=== PATIENT | male | born 1935 | race Caucasian/White ===

== ENCOUNTER 2021-10-04 21:41 | Inpatient (IN) | payer OTHER ==
--- OUTSIDE RECORDS SUMMARY | 2021-10-04 21:44 | XMS REPORT | Continuity of Care Document ---
:1935 Author Organization [facility] t Address [address] [place] [address] Care Team Providers Name Role Phone DR RADHA GRANADO I Attending Clinician Unavailable DR Beatris GRANADO Admitting Clinician Unavailable Payers Payer Name Policy Type Policy Number Effective Date Expiration Date S ource Problems This patient has no known problems. Allergies, Adverse Reactions, Alerts Allergy Allergy Status Severity Reaction(s) Onset Inactive Treating Comm ents Source Name Type Date Date Clinician No Known DA Active Unknown Mickie Allergie 06-21 Medical s 00:00: Center 00 Medications This patient has no known medications. Vital Signs Vital Name Observation Time Observation Value Comments Source Height 2020-06-10 10:35:00 167.64 CM Weight 2020-06-10 10:35:00 61.23 KG Procedures Procedure Date / Time Performed Performing Clinician [facility] e OFFICE O/P EST LOW 2021-07-28 00:00:00 John [facility] cha Center 20-29 MIN SYST BP >= 140 MM HG 2021-07-28 00:00:00 [facility] dical Center DIAST BP >= 90 MM HG 2021-07-28 00:00:00 [facility] [place] EXCISION OF NAIL FOLD 2021-07-28 00:00:00 John [facility] [place] TOE SUPPLEMENT LT INGUINAL 2020-06-09 00:00:00 [facility] SYN OPEN Center REPAIR SMALL INTESTINE 2020-06-09 00:00:00 Ivy [facility] OPEN APPR Center Encounters Start End Encounter Admission Attending Care Care Encounter Source Date/Time Date/Time Type Type Clinicians Facility Department ID 2021-08-03 2021-08-03 Outpatient JESE Mcknight [facility] [place] [id number] [place] 10:37:00 10:37:00 Les [id number] Med ical 1 Center 2021-07-28 2021-07-28 Outpatient JESE Mcknight [facility] [place] [id number] [place] 15:15:00 15:15:00 Les [id number] Med ical 5 [place] 2021-07-27 2021-07-27 Outpatient Juan Luis, [facility] [id number] [place] 15:59:00 15:59:00 Les [id number] Med ical 4 [place] 2021-07-19 2021-07-19 Outpatient Juan Luis, [facility] [id number] [place] 16:00:00 16:00:00 Les 56- Med ical 6 [place] 2020-06-09 2020-06-11 Inpatient E VANNESA, [facility] [place] [id number] [address] [place] 11:02:00 14:21:00 [facility] Medic al Center Results Test Description Test Time Test Comments Results Result Comments Source COMPREHENSIVE METABOLIC CRUZ 2020-06-11 09:47:00 Test Item Value Reference Range Interpretation Comme nts GLUCOSE (test code = 126 mg/dL 75-100 H 06D) SODIUM (test code = 137 mmol/L 136-145 01A) POTASSIUM (test code = 3.1 mmol/L 3.6-5.1 L 01B) CHLORIDE (test code = 100 mmol/L 98-107 04A) CO2 (test code = 02A) 31 mmol/L 22-32 ANION GAP (test code = 9.1 mmol/L ANG) BUN (test code = 05D) 11 mg/dL 7-18 CREATININE (test code = 0.6 mg/dL 0.7-1.3 L 03E) GFR (test code = GFR) 93 mL/min/1.73m\S\2 See_Comment [Automated message] The system which ge nerated this result tra nsmitted reference range : >=90. The reference r uli was not used to int erpret this result as normal/abnormal . GFR 108 mL/min/1.73m\S\2 See_Comment [Automated message] The (test code = GFRAA) system w [facility] generated this result tra nsmitted reference range : >=90. The reference r uli was not used to int erpret this result as normal/abnormal . EGFR (test code = EGFR) eGFR BY CKD-EPI CALCULATION IS NOT RECOMMENDED FOR PATIENTS UNDER 18 YEARS OF AGE. BUN/CREA (test code = 20 12-20 BCR) CALCIUM (test code = 8.5 mg/dL 8.3-9.5 09D) BILI TOTAL (test code = 0.9 mg/dL 0.2-1.0 11A) PROTEIN (test code = 6.0 g/dL 6.4-8.2 L 07D) ALBUMIN (test code = 2.7 g/dL 3.5-4.8 L 08D) GLOBULIN (test code = 3.3 g/dL 1.5-3.8 GLB) ALB/GLOB (test code = 0.8 1.0-2.6 L AGRR) ALK PHOS (test code = 32 IU/L 42-121 L 35A) AST (test code = 30A) 14 IU/L See_Comment [Auto mated message] The system which [place] nerated this result tra nsmitted reference range : <=42. The reference r uli was not used to int erpret this result as normal/abnormal . ALT (test code = 31A) 13 IU/L See_Comment [Auto mated message] The system which [place] nerated this result tra nsmitted reference range : <=78. The reference r uli was not used to int erpret this result as normal/abnormal . CBC (INCLUDES AUTOMATED DIFFERENTIAL)2020-06-11 09:30:00 Test Item Value Reference Range Interpretation Comments WBC (test code = WBC) 7.1 10\S\3/uL 4.5-11.0 RBC (test code = RBC) 3.34 10\S\6/uL 3.80-5.80 L HGB (test code = HBG) 11.8 g/dL 14.0-18.0 L HCT (test code = HCT) 34.2 % 35.0-46.0 L MCV (test code = MCV) 102.4 fL 80.0-94.0 H MCH (test code = MCH) 35.3 pg 27.0-31.0 H MCHC (test code = MCHC) 34.5 g/dL 32.0-36.0 RDW (test code = RDW) 12.9 % 11.5-14.5 PLT (test code = PLT) 211 10\S\3/uL 130-400 MPV (test code = MPV) 8.6 fL 9.4-12.4 L NEUTROP # (test code = NE#) 5.5 10\S\3/uL 2.0-8.0 LYMPH # (test code = LY#) 1.0 10\S\3/uL 1.2-4.0 L MONOCYTE # (test code = MO#) 0.6 10\S\3/uL 0.0-1.1 EOSINOPH # (test code = EO#) 0.0 10\S\3/uL 0.0-0.7 BASOPHIL # (test code = BA#) 0.0 10\S\3/uL 0.0-0.3 IG # (test code = IG#) 0.01 10\S\3/uL 0.00-0.06 NRBC # (test code = NRBC#) 0.00 10\S\3/uL 0.00-0.01 NEUTROPH % (test code = NE%) 77.0 % 35.0-73.0 H LYMPH % (test code = LY%) 13.6 % 20.0-55.0 L MONO % (test code = MO%) 8.9 % 2.5-10.0 EOSINOPH % (test code = EO%) 0.3 % 0.0-5.0 BASOPHIL % (test code = BA%) 0.1 % 0.0-2.0 IG % (test code = IG%) 0.1 % 0.0-0.8 NRBC% (test code = NRBC%) 0.0 % 0.0-0.2 MANDIFF (test code = MDIFF) NO NO RBC MORPH (test code = RBCMOR) NORMAL CBC WITH [id number] 10:12:00 Test Item Value Reference Range Interpretation Comments WBC (test code = WBC) 6.4 10\S\3/uL 4.5-11.0 RBC (test code = RBC) 3.40 10\S\6/uL 3.80-5.80 L HGB (test code = HBG) 12.0 g/dL 14.0-18.0 L HCT (test code = HCT) 34.9 % 35.0-46.0 L MCV (test code = MCV) 97.0 fL 80.0-94.0 H MCH (test code = MCH) 35.3 pg 27.0-31.0 H MCHC (test code = MCHC) 34.4 g/dL 32.0-36.0 RDW (test code = RDW) 13.2 % 11.5-14.5 PLT (test code = PLT) 182 10\S\3/uL 130-400 MPV (test code = MPV) 9.6 fL 9.4-12.4 NEUTROP # (test code = NE#) 5.1 10\S\3/uL 2.0-8.0 LYMPH # (test code = LY#) 0.8 10\S\3/uL 1.2-4.0 L MONOCYTE # (test code = 0.5 10\S\3/uL 0.0-1.1 MO#) EOSINOPH # (test code = 0.0 10\S\3/uL 0.0-0.7 EO#) BASOPHIL # (test code = 0.0 10\S\3/uL 0.0-0.3 BA#) IG # (test code = IG#) 0.01 10\S\3/uL 0.00-0.06 NRBC # (test code = NRBC#) 0.00 10\S\3/uL 0.00-0.01 NEUTROPH % (test code = 79.5 % 35.0-73.0 H NE%) LYMPH % (test code = LY%) 12.4 % 20.0-55.0 L MONO % (test code = MO%) 7.7 % 2.5-10.0 EOSINOPH % (test code = 0.0 % 0.0-5.0 EO%) BASOPHIL % (test code = 0.2 % 0.0-2.0 BA%) IG % (test code = IG%) 0.2 % 0.0-0.8 NRBC% (test code = NRBC%) 0.0 % 0.0-0.2 PLT EST (test code = ADEQUATE ADEQUATE PLTEST) PLT MORPH (test code = NORMAL (1.5-3 um) NORMAL PLTMOR) ANISO (test code = ANISO) 1+ NONE A HYPOCHROM (test code = 1+ NONE A HYPOC) MACRO (test code = MACRO) 1+ NONE A BASIC METABOLIC [id number] 09:41:00 Test Item Value Reference Range Interpretation Comments GLUCOSE (test code 173 mg/dL 75-100 H = 06D) SODIUM (test code 134 mmol/L 136-145 L = 01A) POTASSIUM (test 3.6 mmol/L 3.6-5.1 code = 01B) CHLORIDE (test 95 mmol/L 98-107 L code = 04A) CO2 (test code = 35 mmol/L 22-32 H 02A) ANION GAP (test 7.6 mmol/L code = ANG) BUN (test code = 20 mg/dL 7-18 H 05D) CREATININE (test 0.8 mg/dL 0.7-1.3 code = 03E) GFR (test code = 82 See_Comment L [Automated GFR) mL/min/1.73m\S\2 message] Th e system which generated this result transmit vasyl reference range : >=90. The reference range was not used to interpret this result as normal/abnormal . GFR 95 See_Comment [Automated MACANESE (test mL/min/1.73m\S\2 message] The code = GFRAA) system which generated this result transmit vasyl reference range : >=90. The reference range was not used to interpret this result as normal/abnormal . EGFR (test code = eGFR BY EGFR) CKD-EPI CALCULATION IS NOT RECOMMENDED FOR PATIENTS UNDER 18 YEARS OF AGE. BUN/CREA (test 26 12-20 H code = BCR) CALCIUM (test code 8.7 mg/dL 8.3-9.5 = 09D) SARS-CoV (RAPID ANTIGEN)2020-06-09 14:36:00 Test Item Value Reference Range Interpretation Comments SARS-CoV (ANTIGEN) NEGATIVE NEGATIVE (test code = COVAG) COVID AG (test This test has been code = COVAGC) marketed under the FDA Emergency Use Authorization (EUA) to meet challenges of the COVID-19 pandemic. The validation standards normally enforced by the FDA and the [employer] (CAP) are more stringent than those required for this test. Therefore, the result should be interpreted with caution and close attention to other clinical and epidemiological data PRO TIME AND [id number] 11:38:00 Test Item Value Reference Range Interpretation Comments PT (test code = 11.1 s 9.8-13.6 TT) INR (test code = 1.0 INR) INRH (test code = SUGGESTED INRH) THERAPEUTIC RANGE FOR INR: 2.5 - 3.5 For Patients with Prosthetic Valves or Patients with recurrent Thromboembolic Events 2.0 - 3.0 For Most Other Applications PTT (test code = 27.7 s 20.2-38.0 PTT) PTTH (test code = To monitor the PTTH) effectiveness of heparin, we offer the Anti-Xa (Heparin Assay). It can be used for either unfractionated or LMW Heparin. Order Code is ANTI-XA CBC (INCLUDES AUTOMATED DIFFERENTIAL)2020-06-09 11:31:00 Test Item Value Reference Range Interpretation Comments WBC (test code = WBC) 10.6 10\S\3/uL 4.5-11.0 RBC (test code = RBC) 4.31 10\S\6/uL 3.80-5.80 HGB (test code = HBG) 15.0 g/dL 14.0-18.0 HCT (test code = HCT) 41.8 % 35.0-46.0 MCV (test code = MCV) 97.0 fL 80.0-94.0 H MCH (test code = MCH) 34.8 pg 27.0-31.0 H MCHC (test code = MCHC) 35.9 g/dL 32.0-36.0 RDW (test code = RDW) 12.9 % 11.5-14.5 PLT (test code = PLT) 291 10\S\3/uL 130-400 MPV (test code = MPV) 8.6 fL 9.4-12.4 L NEUTROP # (test code = NE#) 8.8 10\S\3/uL 2.0-8.0 H LYMPH # (test code = LY#) 0.8 10\S\3/uL 1.2-4.0 L MONOCYTE # (test code = MO#) 1.0 10\S\3/uL 0.0-1.1 EOSINOPH # (test code = EO#) 0.0 10\S\3/uL 0.0-0.7 BASOPHIL # (test code = BA#) 0.0 10\S\3/uL 0.0-0.3 IG # (test code = IG#) 0.02 10\S\3/uL 0.00-0.06 NRBC # (test code = NRBC#) 0.00 10\S\3/uL 0.00-0.01 NEUTROPH % (test code = NE%) 82.9 % 35.0-73.0 H LYMPH % (test code = LY%) 7.2 % 20.0-55.0 L MONO % (test code = MO%) 9.5 % 2.5-10.0 EOSINOPH % (test code = EO%) 0.0 % 0.0-5.0 BASOPHIL % (test code = BA%) 0.2 % 0.0-2.0 IG % (test code = IG%) 0.2 % 0.0-0.8 NRBC% (test code = NRBC%) 0.0 % 0.0-0.2 MANDIFF (test code = MDIFF) NO NO RBC MORPH (test code = RBCMOR) NORMAL
[2021-10-04] MEDS ORDERED: LIDOCAINE VISCOUS 2% SOLN 15 ML UDC ONE (22:27)
--- NOTE | 2021-10-04 23:10 | RAD REPORT ---
EXAM DESCRIPTION: CT - Head C Spine Cap Wo Con - 10/04/2021 10:55 pm CLINICAL HISTORY: Trauma, head and neck injury. Chest, abdomen and pelvis pain. FALL COMPARISON: No comparisonsNo comparisons TECHNIQUE: CT head without contrast. CT cervical spine without contrast with coronal and sagittal reformatted images. CT chest, abdomen and pelvis with coronal and sagittal reformatted images of the spine. All CT scans are performed using dose optimization technique as appropriate and may include automated exposure control or mA/KV adjustment according to patient size. FINDINGS: CT HEAD WITHOUT CONTRAST: No intracranial hemorrhage, hydrocephalus or extra-axial fluid collection. No acute large vascular te rritory infarct. Mild chronic small vessel ischemic changes The paranasal sinuses and mastoids are clear. The calvarium is intact. CT CERVICAL SPINE WITHOUT CONTRAST: No fracture or subluxation. The prevertebral soft tissues are normal in thickness.Mild cervical spondylosis which is most advance d at C4-5 with there is neural foraminal narrowing. Trace retrolisthesis is noted at this level. This is likely related to underlying degenerative changes. CT CHEST, ABDOMEN, PELVIS: Thorax: Chest Wall: No abnormal mass Lungs: Mild ground-glass opacities in the lower lobes. Pleura: No effusions or pneumothorax. Nayeli/Mediastinum: No lymphadenopathy. Patulous esophagus containing fluid. Aorta/Pulmonary Arteries: Unremarkable Heart: Normal size. Multi-vessel coronary artery disease. Abdomen/Pelvis: Liver: No acute abnormality or suspicious lesions. Biliary: Cholelithiasis. Stomach: No significant focal abnormality. Duodenum: No significant focal abnormality. Pancreas: No significant abnormality. Spleen: No significant abnormality. Adrenal: No suspicious lesions. Kidney/ureter: No hydronephrosis. No renal calculi. Too small to characterize and/or benign appearing renal lesions are noted. Retroperitoneum: No retroperitoneal adenopathy. Vascular: No aneurysm. Bowel: No significant focal abnormality. Peritoneum: No ascites or free air. Bladder: Whyte catheter in the bladder. Reproductive: No adnexal masses. Bones: No acute fracture. Subacute versus remote left-sided rib fractures. Other: n/a IMPRESSION: 1. No acute intracranial abnormality. 2. No evidence of acute fracture or traumatic malalignment cervical spine. 3. No evidence of significant trauma to the chest, abdomen, or pelvis. 4. Patulous esophagus containing fluid with mild basilar ground-glass opacities concerning for mild a spiration.
--- NOTE | 2021-10-04 23:35 | EDPHYS ---
Physician Documentation [facility] – [place], [place] Name: Can Mccabe Age: 86 yrs Sex: Male : 1935 Arrival Date: 10/04/2021 Time: 21:44 Bed 16 Private MD: CHALINO Physician Titi Guzman HPI: 10/04 22:09 This 86 yrs old Male presents to ER via EMS with complaints of AMS, FALL AND ritika WEAKNESS TONIGHT. 22:09 WEAKNESS, AMS , FALL. The patient presents with confusion, decreased mental status, ritika disorientation, trouble concentrating. Onset: The symptoms/episode began/occurred today. Possible causes: CVA or TIA, drug use, alcohol, head injury, low blood sugar, sepsis. Associated signs and symptoms: Pertinent positives: agitation, confusion, weakness. Current symptoms: In the emergency department the patient's symptoms are unchanged from the initial presentation, despite home interventions. Patient's baseline: Neuro: alert but confused, Motor: no deficits, Ambulation: walks with assist only, Speech: slow, slurred, HIS USUAL. Severity of symptoms: At their worst the symptoms were mild moderate in the emergency department the symptoms are unchanged. The patient has not experienced similar symptoms in the past. Historical: - Allergies: 21:59 No Known Allergies; ke1 - PMHx: 21:59 Hypertensive disorder; ke1 - Immunization history:: Client reports receiving the 2nd dose of the Covid vaccine. - Social history:: Smoking status: Patient denies any tobacco usage or history of. ROS: 22:12 Constitutional: Negative for fever, chills, and weight loss, Eyes: Negative for injury, ritika pain, redness, and discharge, ENT: Negative for injury, pain, and discharge, Neck: Negative for injury, pain, and swelling, Cardiovascular: Negative for chest pain, palpitations, and edema, Respiratory: Negative for shortness of breath, cough, wheezing, and pleuritic chest pain, Abdomen/GI: Negative for abdominal pain, nausea, vomiting, diarrhea, and constipation, Back: Negative for injury and pain, : Negative for injury, bleeding, discharge, and swelling, MS/Extremity: Negative for injury and deformity, Skin: Negative for injury, rash, and discoloration, Psych: Negative for depression, anxiety, suicide ideation, homicidal ideation, and hallucinations, Allergy/Immunology: Negative for hives, rash, and allergies, Endocrine: Negative for neck swelling, polydipsia, polyuria, polyphagia, and marked weight changes, Hematologic/Lymphatic: Negative for swollen nodes, abnormal bleeding, and unusual bruising. 22:12 Neuro: Positive for altered mental status, dizziness, weakness. 22:12 Psych: Positive for insomnia. Exam: 22:12 Head/Face: Normocephalic, atraumatic. Eyes: Pupils equal round and reactive to light, ritika extra-ocular motions intact. Lids and lashes normal. Conjunctiva and sclera are non-icteric and not injected. Cornea within normal limits. Periorbital areas with no swelling, redness, or edema. ENT: Nares patent. No nasal discharge, no septal abnormalities noted. Tympanic membranes are normal and external auditory canals are clear. Oropharynx with no redness, swelling, or masses, exudates, or evidence of obstruction, uvula midline. Mucous membranes moist. Neck: Trachea midline, no thyromegaly or masses palpated, and no cervical lymphadenopathy. Supple, full range of motion without nuchal rigidity, or vertebral point tenderness. No Meningismus. Chest/axilla: Normal chest wall appearance and motion. Nontender with no deformity. No lesions are appreciated. Cardiovascular: Regular rate and rhythm with a normal S1 and S2. No gallops, murmurs, or rubs. Normal PMI, no JVD. No pulse deficits. Respiratory: Lungs have equal breath sounds bilaterally, clear to auscultation and percussion. No rales, rhonchi or wheezes noted. No increased work of breathing, no retractions or nasal flaring. Abdomen/GI: Soft, non-tender, with normal bowel sounds. No distension or tympany. No guarding or rebound. No evidence of tenderness throughout. Back: No spinal tenderness. No costovertebral tenderness. Full range of motion. 22:12 Constitutional: The patient appears in obvious distress, mildly distressed. 22:12 Cardiovascular: Rate: normal, Rhythm: regular, Pulses: Pulses are 4+ in bilateral radial, brachial, femoral, popliteal, posterior tibial and and dorsalis pedis arteries.. Heart sounds: normal, Edema: is not appreciated, JVD: is not appreciated. 22:12 Neuro: Orientation: to person, Not oriented to place, time, situation, Memory: unable to test, Cranial nerves: is grossly normal based on the patient's age, no acute changes, Cerebellar function: no acute changes, Motor: moves all fours, strength is 5/5 in all extremities, Sensation: no obvious gross deficits, appropriate no acute changes, Gait: not tested. seizure activity, is not displayed by the patient. 23:48 ECG was reviewed by the Attending Physician. [facility] Vital Signs: 21:53 BP 198 / 96; Pulse 82; Resp 18; Temp 98.5; Pulse Ox 94% on R/A; Weight 63.5 kg; Height ke1 5 ft. 6 in. (167.64 cm); Pain 0/10; 10/05 00:05 BP 159 / 59; Pulse 101; Resp 20; Pulse Ox 95% on R/A; ke1 10/04 21:53 Body Mass Index 22.60 (63.50 kg, 167.64 cm) ke1 NIH Stroke Scale Scores: 10/04 22:12 NIHSS Score: 4 ritika MDM: 21:51 Patient medically screened. ritika 22:15 Differential Diagnosis altered mental status, sepsis. Differential Diagnosis: CVA, ritika electrolyte abnormality, hypoglycemia, intracranial bleed, overdose, pneumonia, seizure, sepsis, volume depletion. Data reviewed: vital signs, nurses notes, EMS record, lab test result(s), EKG, radiologic studies, CT scan, plain films. Data interpreted: air sampling and monitoring: rate is 82 beats/min, rhythm is regular, Pulse oximetry: on room air is 94 %. Test interpretation: by ED physician or midlevel provider: ECG, plain radiologic studies. Counseling: I had a detailed discussion with the patient and/or guardian regarding: the historical points, exam findings, and any diagnostic results supporting the discharge/admit diagnosis, lab results, radiology results, the need for outpatient follow up. 10/04 22:07 Order name: Basic Metabolic Panel; Complete Time: 00:13 [facility] 10/04 22:07 Order name: CBC with Diff [facility] 10/04 21: Order name: LFT's; Complete Time: 00:13 [facility] 10/04 22:07 Order name: Magnesium; Complete Time: 00:13 [facility] 10/04 22:07 Order name: NT PRO-BNP; Complete Time: 00:13 [facility] 10/04 22:07 Order name: PT-INR; Complete Time: 00:04 [facility] 06/22 22:07 Order name: Troponin HS; Complete Time: 00:13 [facility] 10/04 22:07 Order name: Urine Culture [facility] 10/04 22:07 Order name: Lactate; Complete Time: 00:13 [facility] 10/04 22:07 Order name: SARS-COV-2 RT PCR (Document "Date of Onset" if Symptomatic) [facility] 10/04 22:07 Order name: CK; Complete Time: 00:13 [facility] 10/04 22:07 Order name: Ckmb; Complete Time: 00:13 [facility] 10/04 22:07 Order name: Blood Culture Adult (2) [facility] 10/04 23:59 Order name: Manual Differential EDDE 10/04 22:07 Order name: XRAY Chest (1 view) [facility] 10/04 22:07 Order name: EKG; Complete Time: 22:07 [facility] 10/04 22:07 Order name: Cardiac monitoring; Complete Time: 22:45 [facility] 10/04 22:07 Order name: EKG - Nurse/Tech; Complete Time: 23:52 [facility] 10/04 22:07 Order name: IV Saline Lock; Complete Time: 23:40 [facility] 10/04 22:07 Order name: CT Traumagram (Head C Spine CAP wo con); Complete Time: 23:30 [facility] 10/05 00:02 Order name: Urine Dipstick-Ancillary; Complete Time: 00:04 [facility] 10/05 00:13 Order name: Urine Osmolality [facility] 10/05 00:13 Order name: Urine Sodium Random [facility] 10/05 00:13 Order name: Osmolality, Serum [facility] 10/04 22:07 Order name: Labs collected and sent; Complete Time: 23:40 [facility] 10/04 22:07 Order name: O2 Per Protocol; Complete Time: 22:45 [facility] 10/04 22:07 Order name: O2 Sat Monitoring; Complete Time: 22:45 [facility] 10/04 22:07 Order name: Urine Dipstick-Ancillary (obtain specimen); Complete Time: 00:16 [facility] 10/04 22:17 Order name: Kong; Complete Time: 22:44 [facility] EC:48 Rate is 82 beats/min. Rhythm is regular. QRS Kinsman is Normal. KS interval is normal. QRS ritkia interval is normal. QT interval is normal. No Q waves. T waves are Normal. No ST changes noted. Clinical impression: NSR w/ Non-specific ST/T Changes and No evidence of ischemia. Interpreted by me. Reviewed by me. Administered Medications: 22:44 Drug: Viscous Lidocaine Liquid (4 %) 5 ml {Note: kong insertion.} Route: Mucous ke1 Membrane; 22:59 CANCELLED (Duplicate Order): Rocephin (cefTRIAXone) 1 grams IV at per protocol once; ritika Given slow IV push per pharmacy instructions 23:50 Drug: Zosyn (piperacillin-tazobactam) 3.375 grams Route: IVPB; Infused Over: 60 mins; ke1 Site: left antecubital; 10/05 00:50 Follow up: Response: No adverse reaction; IV Status: Completed infusion ke1 10/04 23:51 Drug: foLIC Acid 1 mg Route: IVPB; Site: left antecubital; ke1 10/05 00:45 Drug: NS 0.9% 500 ml Route: IV; Rate: bolus; Site: left antecubital; ke1 00:45 Drug: NS 0.9% 1000 ml Route: IV; Rate: 75 ml/hr; Site: left antecubital; ke1 Disposition Summary: 10/04/21 23:34 Hospitalization Ordered Hospitalization Status: Inpatient Admission ritika Provider: Terrell Minaya cha Location: Telemetry/MedSurg (Inpatient) ritika Condition: Fair ritika Problem: new ritika Symptoms: have improved ritika Bed/Room Type: Standard [facility] Room Assignment: 231(10/05/21 00:58) zm Diagnosis - Dementia in other diseases classified elsewhere without behavioral disturbance ritika - Repeated falls ritika - Retention of urine, unspecified ritika - Pneumonia due to other specified bacteria - ASPIRATION ritika - Altered mental status, unspecified ritika - Hypo-osmolality and hyponatremia ritika Forms: - Medication Reconciliation Form ritika - SBAR form ritika NIH Stroke Scale - NIH Stroke Score Date: 10/04/2021 Time: 22:12 Total Score = 4 1a. Level of Consciousness (LOC) - 0(Alert) 1b. Level of Consciousness (LOC) (Month \\T\\ Age) - 2(Neither) 1c. LOC Commands (Open \\T\\ Closes Eyes/English Language Learner Tutor) - 0(Both) 2. Best Gaze (Lateral Gaze Paresis) - 0(Normal) 3. Visual Field Loss - 0(No visual loss) 4. Facial Palsy - 0(Normal) 5a. Left Arm: Motor (10-second hold) - 0(No drift) 5b. Right Arm: Motor (10-second hold) - 0(No drift) 6a. Left Leg: Motor (5-second hold - always test supine) - 0(No drift) 6b. Right Leg: Motor (5-second hold - always test supine) - 0(No drift) 7. Limb Ataxia (finger/nose \\T\\ heel/cross - test with eyes open) - 0(Absent) 8. Sensory Loss (pinprick arms/legs/face) - 0(Normal) 9. Best Language: Aphasia (description/naming/reading) - 1(Mild to moderate aphasia) 10. Dysarthria (speech clarity - read or repeat words) - 1(Mild to Moderate) 11. Extinction and Inattention (visual/tactile/auditory/spatial/personal) - 0(No abnormality) Initials: ritika Signatures: Dispatcher [employer] EDMS Titi Guzman MD MD cha Attema, Lee, ROOF BOLTING COAL MINER-C ROOF BOLTING COAL MINER-Cla1 Tonya Weldon RN RN ke1 Ewelina Nur Corrections: (The following items were deleted from the chart) 10/04 22:59 22:09 Rocephin (cefTRIAXone) 1 grams IV at per protocol once; Given slow IV ritika push per pharmacy instructions ordered. ritika 10/05 00:58 10/04 23:34 ritika encarnacion
--- NOTE | 2021-10-04 23:35 | ER ---
Nurse's Notes [facility] Name: Can Mccabe Age: 86 yrs Sex: Male : 1935 Arrival Date: 10/04/2021 Time: 21:44 Bed 16 Private MD: Diagnosis: Dementia in other diseases classified elsewhere without behavioral disturbance;Repeated falls;Retention of urine, unspecified;Pneumonia due to other specified bacteria-ASPIRATION;Altered mental status, unspecified;Hypo-osmolality and hyponatremia Presentation: 10/04 21:53 Chief complaint: Spouse and/or significant other states: Per son found on bathroom ke1 floor at 1900 and did start throwing up an hour after with increase confusion. Coronavirus screen: Vaccine status: Patient reports receiving the 2nd dose of the covid vaccine. Ebola Screen: No symptoms or risks identified at this time. Initial Sepsis Screen: Does the patient meet any 2 criteria? No. Patient's initial sepsis screen is negative. Does the patient have a suspected source of infection? No. Patient's initial sepsis screen is negative. Risk Assessment: Do you want to hurt yourself or someone else? Patient reports no desire to harm self or others. Onset of symptoms was October 04, 2021 at 19:00. 21:53 Method Of Arrival: EMS: [facility] 21:53 Acuity: LULU 3 ke1 Triage Assessment: 22:01 General: Appears Behavior is. Pain: Denies pain. Neuro: Level of Consciousness is ke1 awake, alert, Oriented to person. Respiratory: Respiratory effort is unlabored, Respiratory pattern is regular, symmetrical. : Parent/caregiver report the patient having difficulty urinating. Historical: - Allergies: 21:59 No Known Allergies; ke1 - PMHx: 21:59 Hypertensive disorder; ke1 - Immunization history:: Client reports receiving the 2nd dose of the Covid vaccine. - Social history:: Smoking status: Patient denies any tobacco usage or history of. Screenin:00 Abuse screen: Denies threats or abuse. Nutritional screening: No deficits noted. ke1 Tuberculosis screening: No symptoms or risk factors identified. Fall Risk Fall in past 12 months (25 points). No secondary diagnosis (0 pts). IV access (20 points). Ambulatory Aid- None/Bed Rest/Nurse Assist (0 pts). Gait- Weak (10 pts.). Mental Status- Oriented to own ability (0 pts). Total Curry Fall Scale indicates High Risk Score (45 or more points). Fall prevention measures have been instituted. Side Rails Up X 2 Placed Close to Nursing Station Frequent Obs/Assessments Occuring Family Present and informed to notify staff if the need to leave the bedside As available patient and family educated on Fall Prevention Program and Strategies. Assessment: 22:00 Reassessment: see triage. ke1 22:15 Reassessment: Emesis x 1 scant amount clear liquid. ke1 23:00 Reassessment: No changes from previously documented assessment. ke1 10/05 00:14 Reassessment: Patient appears in no apparent distress at this time. Daughter at ke1 bedside, patient still confused to situation asking to urinate while Kong in place. Vital Signs: 10/04 21:53 BP 198 / 96; Pulse 82; Resp 18; Temp 98.5; Pulse Ox 94% on R/A; Weight 63.5 kg; Height ke1 5 ft. 6 in. (167.64 cm); Pain 0/10; 10/05 00:05 BP 159 / 59; Pulse 101; Resp 20; Pulse Ox 95% on R/A; ke1 10/04 21:53 Body Mass Index 22.60 (63.50 kg, 167.64 cm) ke1 NIH Stroke Scale Scores: 10/04 22:12 NIHSS Score: 4 [facility] ED Course: 21:44 Patient arrived in ED. la1 21:51 Titi Guzman MD is Attending Physician. [facility] 21:53 Tonya Weldon, RN is Primary Nurse. ke1 21:59 Triage completed. ke1 22:45 Kong cath inserted, using sterile technique, 16 Fr., by oh, balloon inflated, returned ke1 800 ml. 22:54 XRAY Chest (1 view) In Process Unspecified. EDMS 22:57 CT Traumagram (Head C Spine CAP wo con) In Process Unspecified. EDMS 23:00 Patient has correct armband on for positive identification. ke1 23:00 Emesis basin given. ke1 23:32 Terrell Minaya MD is Hospitalizing Provider. [facility] 23:40 Inserted saline lock: 20 gauge in left antecubital area, using aseptic technique. ke1 23:43 EKG done, by ED staff. wm 23:43 Client placed on continuous cardiac and pulse oximetry monitoring. NIBP monitoring wm applied. water plant operator on. 10/05 02:03 Report given to May Godwin RN. ke1 02:04 No provider procedures requiring assistance completed. Patient admitted, IV remains in ke1 place. Administered Medications: 10/04 22:44 Drug: Viscous Lidocaine Liquid (4 %) 5 ml {Note: kong insertion.} Route: Mucous ke1 Membrane; 22:59 CANCELLED (Duplicate Order): Rocephin (cefTRIAXone) 1 grams IV at per protocol once; ritika Given slow IV push per pharmacy instructions 23:50 Drug: Zosyn (piperacillin-tazobactam) 3.375 grams Route: IVPB; Infused Over: 60 mins; [facility] Site: left antecubital; 10/05 00:50 Follow up: Response: No adverse reaction; IV Status: Completed infusion ke1 10/04 23:51 Drug: foLIC Acid 1 mg Route: IVPB; Site: left antecubital; [facility] 10/05 00:45 Drug: NS 0.9% 500 ml Route: IV; Rate: bolus; Site: left antecubital; ke1 00:45 Drug: NS 0.9% 1000 ml Route: IV; Rate: 75 ml/hr; Site: left antecubital; [facility] Output: 02:34 Urine: 750ml (Kong); Total: 750ml. ke Outcome: 10/04 23:34 Decision to Hospitalize by Provider. [facility] 10/05 02:04 Admitted to Med/surg accompanied by tech. [facility] Condition: stable Instructed on the need for admit. 02:46 Patient left the ED. ke1 NIH Stroke Scale - NIH Stroke Score Date: 10/04/2021 Time: 22:12 Total Score = 4 1a. Level of Consciousness (LOC) - 0(Alert) 1b. Level of Consciousness (LOC) (Month \T\ Age) - 2(Neither) 1c. LOC Commands (Open \T\ Closes Eyes/Nursing Care Partner) - 0(Both) 2. Best Gaze (Lateral Gaze Paresis) - 0(Normal) 3. Visual Field Loss - 0(No visual loss) 4. Facial Palsy - 0(Normal) 5a. Left Arm: Motor (10-second hold) - 0(No drift) 5b. Right Arm: Motor (10-second hold) - 0(No drift) 6a. Left Leg: Motor (5-second hold - always test supine) - 0(No drift) 6b. Right Leg: Motor (5-second hold - always test supine) - 0(No drift) 7. Limb Ataxia (finger/nose \T\ heel/cross - test with eyes open) - 0(Absent) 8. Sensory Loss (pinprick arms/legs/face) - 0(Normal) 9. Best Language: Aphasia (description/naming/reading) - 1(Mild to moderate aphasia) 10. Dysarthria (speech clarity - read or repeat words) - 1(Mild to Moderate) 11. Extinction and Inattention (visual/tactile/auditory/spatial/personal) - 0(No abnormality) Initials: ritika Signatures: Dispatcher [employer] EDMS Titi Guzman MD MD cha Attema, Lee, WATER QUALITY ANALYST-C WATER QUALITY ANALYST-Cla1 Rachelle Can Kouassi, RN RN ke1 Corrections: (The following items were deleted from the chart) 00:12 10/04 22:30 GI: Pt is actively vomiting clear fluid, ke1 ke1
[2021-10-04] MEDS ORDERED: NA CHLORIDE 0.9% 100 ML ONE (23:42)
[2021-10-04] MEDS ORDERED: FOLIC ACID 5 MG/ML VIAL ONE (23:44)
[2021-10-04] MEDS ORDERED: PIPERACIL/TAZO 3.375 GM VIAL IV ONE (23:46)
[2021-10-04 23:56] LABS: Absolute Lymphocytes (CBC) 0.4 K/uL (0.7-4.9); Hematocrit 39.1 % (39.6-49.0); Lymphocytes % 4.4 % (15.3-44.8); MCV 101.1 fL (80-100); Protime INR 1.02; RBC Red Blood Cell Count 3.87 M/uL (4.33-5.43)
[2021-10-05 00:02] LABS: Urine Blood 1+ (Negative); Urine Glucose 2+ (Negative); Urine Protein Negative (Negative); Urine pH 7.5 (5.0-7.0)
[2021-10-05 00:09] LABS: Albumin 3.6 g/dL (3.4-5.0); Bilirubin Direct 0.3 mg/dL (0-0.2); Bilirubin Total 1.1 mg/dL (0.2-1.0); CKMB Creatine Kinase MB 5.3 ng/mL (1.0-3.6); Magnesium 1.9 mg/dL (1.8-2.4); Potassium 3.9 mmol/L (3.5-5.1); Troponin High Sensitivity 8.4 pg/mL (<58.9)
[2021-10-05] MEDS ORDERED: NA CHLORIDE 0.9% 1,000 ML ONE (00:46)
[2021-10-05] MEDS ORDERED: NA CHLORIDE 0.9% 500 ML ONE (00:46)
--- NOTE | 2021-10-05 00:48 | P.HP ---
Certification for Inpatient Patient admitted to: Inpatient With expected LOS: >2 Midnights Patient will require the following post-hospital care: None Practitioner: I am a practitioner with admitting privileges, knowledge of patient current condition, hospital course, and medical plan of care. Services: Services provided to patient in accordance with Admission requirements found in Title 42 Section 412.3 of the Code of Federal Regulations <Darin Caicedo - Last Filed: 10/05/21 00:36> Patient History Date of Service: 10/05/21 Reason for admission: Hyponatremia, aspiration pneumonia History of Present Illness: 86-year-old male with history of hypertension presents emergency department for fall, increased confusion. Patient has a history of dementia the family reports has been increasingly confused over the course last month significantly worse today he had a fall and was found in the bathroom on the floor had been there for less than 30 minutes. He was evaluated here in the emergency department CT head neck/chest abdomen pelvis revealed suspected left-sided aspiration pneumonia his labs were significant for hyponatremia, low chloride level. Urine electrolytes, serum and urine osmolalities have been ordered patient was given 500 cc NS bolus in the ER as well as maintenance fluids at 75 an hour. Patient also given [facility] ED provider wishes to admit for further evaluation and management of hyponatremia, suspected aspiration pneumonia. - Past Medical/Surgical History -: Hypertension -: Dementia -: Hernia repair Psychosocial/ Personal History: Lives at home with his daughter, from out of town currently here on vacation. - Family History Family History: Reviewed- Non-Contributory - Social History Smoking Status: Never smoker Alcohol use: Yes CD- Drugs: No Caffeine use: Yes Place of Residence: Home <Darin Caicedo - Last Filed: 10/05/21 00:36> Date of Service: 10/05/21 <Terrell Minaya - Last Filed: 10/05/21 17:32> Review of Systems is unable to be obtained <Darin Caicedo - Last Filed: 10/05/21 00:36> Physical Examination - Physical Exam General: Alert, In no apparent distress, Oriented x1 HEENT: Atraumatic, PERRLA, Other (MM dry), EOMI, Sclerae nonicteric Neck: Supple, 2+ carotid pulse no bruit, No LAD, Without JVD or thyroid abnormality Respiratory: Clear to auscultation bilaterally, Normal air movement Cardiovascular: Regular rate/rhythm, Normal S1 S2 Capillary refill: <2 Seconds Gastrointestinal: Normal bowel sounds, No tenderness Musculoskeletal: No tenderness Integumentary: No rashes Neurological: Normal speech, Normal tone, Normal affect, Abnormal speech - Studies Laboratory Data (last 24 hrs) 10/04/21 23:27: PT 11.2, INR 1.02 10/04/21 23:27: WBC 9.6, Hgb 13.7, Hct 39.1 L, Plt Count 295 10/04/21 23:27: Sodium 117 L*, Potassium 3.9, BUN 8, Creatinine 0.55, Glucose 235 H, Magnesium 1.9, Total Bilirubin 1.1 H, AST 17, ALT 21, Alkaline Phosphatase 53 <Darin Caicedo - Last Filed: 10/05/21 00:36> - Studies Laboratory Data (last 24 hrs) 10/04/21 23:27: PT 11.2, INR 1.02 10/04/21 23:27: WBC 9.6, Hgb 13.7, Hct 39.1 L, Plt Count 295 10/04/21 23:27: Sodium 117 L*, Potassium 3.9, BUN 8, Creatinine 0.55, Glucose 235 H, Magnesium 1.9, Total Bilirubin 1.1 H, AST 17, ALT 21, Alkaline Phosphatase 53 <Terrell Minaya - Last Filed: 10/05/21 17:32> Assessment and Plan - Plan Assessment: Hyponatremia Altered mental status/metabolic encephalopathy secondary to hyponatremia Hypertension Suspected aspiration pneumonia Plan: Hyponatremia: Urine/serum osmol, urine NA ordered. Given 500cc NS bolus and NS at 75cc/hr in ED. next sodium at 0500. Nephrology consulted. Appears dry, BNP normal, no pulm edema although there is mild pitting edema of the lower ext. Pt does not see doctor often, possible chronic hyponatremia. Appreciate further input from nephrology. Altered mental status/metabolic encephalopathy secondary to hyponatremia: CT head negative, hx dementia, worsening over the last month, sig. worse today. continue as above. Hypertension: Continue home meds avoid diuretics Suspected aspiration pneumonia: Continue zosyn. likely related to vomiting. on room air at this time. DVT PPX:Lovenox Code status:Full Discharge Plan: Home Plan to discharge in: Greater than 2 days - Advance Directives Does patient have a Living Will: No Does patient have a Durable POA for Healthcare: No - Code Status/Comfort Care Code Status Assessed: Yes (Full code) Critical Care: No Time Spent Managing Pts Care (In Minutes): 70 <Darin Caicedo - Last Filed: 10/05/21 00:36> - Plan Patient seen and examined on rounds this morning. Agree with plan of care as noted above. Unclear etiology of encephalopathy. Family report this occurred suddenly, started yesterday. He has had gradual decline of his general mentation, family suspected secondary to depression since his 1 month ago. patient had difficulty urinating yesterday - stating he wasn't going as much to family, so he was drinking more water obstructive uropathy - kong placed in ED with 1L return. possibly contributing to electrolyte abnormalities, possible SIADH urinary Na obtained, will check further studies nephrology consulted continue IV fluids patient s/p 1 dose of ativan for agitation; suspect acute delirum secondary to above. trial of geodon PRN mild ground glass opacities on CT, family deny patient complaining of anything prior to fall, no cough, no difficulty swallowing, no fever. Had 1 emesis episode after fall low suspicion, but will continue to cover for possible aspiration for now Dispo: home, continue home health; ~2-3 days <Terrell Minaya - Last Filed: 10/05/21 17:32>
[2021-10-05 01:10] LABS: Blood Morphology Comment NOT SEEN (NOT SEEN); Platelet Estimate ADEQ
[2021-10-05] MEDS ORDERED: ONDANSETRON 4 MG/2 ML VIAL IV PRN (01:30)
[2021-10-05] MEDS ORDERED: NA CHLORIDE 0.9% 1,000 ML IV SCH (01:30)
[2021-10-05 02:57] VITALS: BMI 23.6
[2021-10-05 04:32] LABS: Urine Appearance Clear (Clear); Urine Bilirubin Negative (Negative); Urine Blood 1+ (Negative); Urine Color Yellow (Yellow); Urine Glucose 2+ (Negative); Urine Protein Negative (Negative); Urine Specific Gravity 1.015 (1.005-1.030); Urine Urobilinogen 0.2 mg/dL (0.2-1.0)
[2021-10-05 05:18] LABS: Potassium 3.5 mmol/L (3.5-5.1)
[2021-10-05 05:30] LABS: Urine Bacteria <20 /HPF (NONE SEEN)
[2021-10-05] MEDS ORDERED: LORazepam 2 MG/ML VIAL IV ONE ×2 (05:37→10:08)
[2021-10-05] MEDS ORDERED: LORazepam 2 MG/ML VIAL ONE (05:45)
[2021-10-05 06:54] LABS: Magnesium 1.7 mg/dL (1.8-2.4)
[2021-10-05] MEDS ORDERED: KCL 20 MEQ/100 mL IVPB 20 MEQ/100 ML BAG IV SCH ×2 (09:00→11:00)
[2021-10-05] MEDS ORDERED: MAGNESIUM SULFATE 1 gm IVPB 1 GM/100 ML BAG IV ONE ×2 (09:00→10:07)
[2021-10-05 09:33] LABS: Potassium 3.9 mmol/L (3.5-5.1)
[2021-10-05] MEDS ORDERED: FUROSEMIDE 20 MG/ 2ML VIAL IV ONE (10:08)
[2021-10-05] MEDS: NA CHLORIDE 0.9% 1,000 ML IV SCH ×3 (10:09→20:51)
[2021-10-05] MEDS ORDERED: FUROSEMIDE 40 MG/4 ML VIAL IV ONE (10:18)
[2021-10-05] MEDS: ENOXAPARIN 40 MG/0.4 ML SQ SCH (10:34)
[2021-10-05 10:38] LABS: Urine Appearance Clear (Clear); Urine Bilirubin Negative (Negative); Urine Blood 2+ (Negative); Urine Color Yellow (Yellow); Urine Glucose 2+ (Negative); Urine Protein Negative (Negative); Urine Urobilinogen 0.2 mg/dL (0.2-1.0)
[2021-10-05] MEDS: PIPER TAZO 3.375 GM in NA CHLORIDE 0.9% 100 ML IV SCH ×3 (10:38→23:50)
[2021-10-05 10:39] LABS: UR PROTEIN 14.9 mg/dL (<11.9)
[2021-10-05 10:48] LABS: Urine Bacteria <20 /HPF (NONE SEEN)
--- NOTE | 2021-10-05 13:04 | RAD REPORT ---
EXAM DESCRIPTION: RAD - Chest Single View - 10/04/2021 10:52 pm CLINICAL HISTORY: 86 years, Male, COUGH COMPARISON: None FINDINGS: Single view of the chest was obtained portable. No prior films are available for compariso n. The lung volume is slightly decreased. Small focal area of airspace opacity within the right lung base suspicious for atelectasis/or infiltrate. The cardiomediastinal silhouette demonstrate to be unr emarkable. The heart is not enlarged. The thoracic aorta is mildly tortuous with minimal intimal calc ification. No significant pleural effusions. The rest of the soft tissue and bony structures demons trate to be unremarkable. IMPRESSION: Small focal area of airspace opacity right lung base suspicious for atelectasis and/or i nfiltrate. Electronically signed by: Tera Martines MD 10/04/2021 11:09 PM CDT Due to temporary technical issues with the PACS/Fluency reporting system, reports are being signed by the in house radiologists without. review as a courtesy to insure prompt reporting. The interpreting radiologist is fully responsible for the content of the report.
[2021-10-05] MEDS ORDERED: WATER FOR INJ,STERILE 10 ML IM PRN (13:38)
--- NOTE | 2021-10-05 14:12 | CON ---
Date of Consultation: 10/05/2021 Reason For Consultation: Hyponatremia. History Of Present Illness: This is an 86-year-old gentleman. All the information has been obtained from the son by the bedside as the patient was sleeping. According to the family, the patient has only past medical history of hypertension, otherwise no other medical issue. The patient was started on treatment for hypertension with lisinopril 10 mg almost 2 month ago, otherwise no other medications. There is no diuretic. The patient lost his 1 month ago. Since then, he started having some depression issue, poor intake. Yesterday, the patient fell. For that reason, the patient was brought to the hospital. Upon arrival to the hospital, the patient found to have hyponatremia down to 117. For that reason, we have been consulted. The patient was started on gentle IV hydration. Sodium did not improve. Reviewing the sodium upon admission at 11, it was 117, after 4 hours still up to 119 and currently at 9 o'clock, it is 117. The patient denied any nausea, any vomiting, any day diarrhea, but he has poor intake. Past Medical History: Includes; 1. Hypertension. 2. Questionable depression. Family History: Positive for hypertension. Social History: Denied smoking. Occasional alcohol. Denied drugs abuse. Home Medications: Include lisinopril. Past Surgical History: Include hernia repair. Review of Systems: Head and neck: No blurry vision. No headache. GI: Has nausea. No vomiting. : No polyuria. No dysuria. No hematuria. Has urine retention. Graphics Editor: Not applicable. Respiratory: No shortness of breath. Cardiovascular: No chest pain. Endocrine: No polydipsia. Skin: No rash. Neuro: Has fall. Has forgetfulness and confusion. Musculoskeletal: No joint pain. Physical Examination: Vital Signs: When I saw the patient; blood pressure 117/55, pulse of 78, afebrile. Chest: Clear to auscultation. Heart: S1, S2 regular. Abdomen: Soft, nontender. Extremities: No edema. Neuro: Alert. No focality. No tremor. Laboratory Data: WBC 9.6, H and H 13.7/39.1. Sodium 117, potassium 3.9, bicarb 22, BUN 7, creatinine 0.4. Hemoglobin A1c of 7, calcium of 8, magnesium 1.7. Urinalysis; specific gravity of 1.015, urine osmolality is 343, random urine sodium of 84. Chest x-ray, ground-glass on the bases. Current Medications: The patient on include; 1. Zosyn. 2. Lovenox. 3. Normal saline at 75 per hour. 4. KCl. Assessment And Plan: 1. 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 I am going to go ahead and increase normal saline to 100. We will give the patient a single dose of Lasix right now and we will repeat urine electrolyte with urine sodium and chemistry in 4 hours from now and we will follow up. I am going to go ahead and add uric acid to his chemistry to evaluate the fluid status for the patient and we will follow up. 2. Hypokalemia, hypomagnesemia. We will supplement. I am going to go ahead and send for cortisol and TSH also to evaluate the electrolyte abnormality and the hyponatremia. 3. Hypertension, controlled, optimal. We will resume lisinopril as home medication. We will follow up the patient. 4. Fall, dementia. We will follow up with primary. 5. Ground-glass infiltration in the lung. We will follow up with primary. Time spent examining the patient [id number] discussing the case with the patient reviewing the data laboratory on the radiology placing order discussing with the staff including charge nurse and hospitalist 65-minute KARLA Voice ID: [id number] Report ID: [id number] MTDD
[2021-10-05] MEDS: ZIPRASIDONE MESYLA 20 MG/VIAL IM PRN (14:30)
[2021-10-05 14:45] LABS: Potassium 4.1 mmol/L (3.5-5.1)
[2021-10-05 16:10] LABS: Potassium 3.4 mmol/L (3.5-5.1)
[2021-10-06 04:27] LABS: Absolute Lymphocytes (CBC) 1.1 K/uL (0.7-4.9); Hematocrit 36.6 % (39.6-49.0); MCV 101.5 fL (80-100); MPV 5.9 fL (7.6-11.3)
[2021-10-06 04:59] LABS: Albumin 2.9 g/dL (3.4-5.0); Magnesium 2.2 mg/dL (1.8-2.4); Phosphorus 2.5 mg/dL (2.5-4.9); Potassium 3.3 mmol/L (3.5-5.1); Thyroid Stimulating Hormone 2.28 uIU/mL (0.360-3.740)
[2021-10-06] MEDS: NA CHLORIDE 0.9% 1,000 ML IV SCH ×3 (06:09→17:41)
--- NOTE | 2021-10-06 07:08 | P.PN ---
Date of Service: 10/06/21 Subjective: improved mentation, more alert/oriented wants to go home sodium slowly increasing ROS: 10 point ROS as noted above, otherwise negative Physical exam GEN: Alert, orientedx2, NAD HEENT: Normal conjunctiva, sclera anicteric CV: Regular rate and rhythm, no edema Pulm: Nonlabored respirations on room air, clear to auscultation ABD: Soft, nontender, nondistended Integumentary: No rashes Neuro: Normal speech, normal affect kong in place Problem List Hyponatremia Altered mental status/metabolic encephalopathy secondary to hyponatremia Hypertension Suspected aspiration pneumonia unclear etiology, SIADH, also with urinary retention pt reportedly drank "a lot" of water the 1-2 days before reported sensation of needing to go urinate but only small amount coming out denies fever/chills, no cough nephrology consulted kong in place, flomax ordered voiding trial tomorrow, pt agitated with it in place geodon as needed continues on home lisinopril episodes of tachycardia noted intermittently will obtain EKG continue zosy for possible aspiration, cultures without growth, likely de- escalate tomorrow Code: full Dispo: home, ~1-2 days Time Spent Managing Pts Care (In Minutes): 35
--- NOTE | 2021-10-06 07:45 | ECHO ---
HEIGHT: 5 ft 6 in WEIGHT: 146 lb 0 oz DATE OF STUDY: 10/05/[address]: Darin Caicedo NP 2-DIMENSIONAL: YES M.MODE: YES DOPPLER: YES COLOR FLOW: YES TDS: PORTABLE: YES DEFINITY: BUBBLE STUDY: DIAGNOSIS: PITTING EDEMA CARDIAC HISTORY: CATHERIZATION: SURGERY: PROSTHETIC VALVE: PACEMAKER: MEASUREMENTS (cm) DIASTOLIC (NORMALS) SYSTOLIC (NORMALS) IVSd 0.9 (0.6-1.2) LA Diam 4.0 (1.9-4.0) LVEF 75% LVIDd 4.7 (3.5-5.7) LVIDs 2.6 (2.0-3.5) %FS 44% LVPWd 0.9 (0.6-1.2) Ao Diam 2.9 (2.0-3.7) 2 DIMENSIONAL ASSESSMENT: RIGHT ATRIUM: NORMAL LEFT ATRIUM: ENLARGED RIGHT VENTRICLE: NORMAL LEFT VENTRICLE: NORMAL TRICUSPID VALVE: MILD TRICUSPID REGURGITATION MITRAL VALVE: NORMAL PULMONIC VALVE: NORMAL AORTIC VALVE: NORMAL PERICARDIAL EFFUSION: NONE AORTIC ROOT: NORMAL LEFT VENTRICULAR WALL MOTION: NORMAL DOPPLER/COLOR FLOW: MILD TRICUSPID REGURGITATION. MILD MITRAL REGURGITATION COMMENTS: NORMAL LEFT VENTRICULAR EJECTION FRACTION (HYPERDYNAMIC) GREATER THAN 60%. NORMAL WALL MOTION. LEFT ATRIAL ENLARGEMENT. GRADE ONE DIASTOLIC DYSFUNCTION (MILD). MILD TRICUSPID REGURGITATION, MILD MITRAL REGURGITATION. TECHNOLOGIST: MIRI TORRES
--- NOTE | 2021-10-06 08:09 | RAD REPORT ---
EXAM DESCRIPTION: RAD - Chest Single View - 10/06/2021 4:40 am CLINICAL HISTORY: f/u bibasilar opacities Chest pain. COMPARISON: Chest Single View dated 10/04/2021 FINDINGS: Portable technique limits examination quality. The lungs are mildly emphysematous. There has been mild improvement in the right basilar lung opaciti es since the comparative study. The heart is normal in size. No displaced fractures. IMPRESSION: Mild improvement in right lung base aeration since comparative study.
[2021-10-06] MEDS ORDERED: POTASSIUM 25 MEQ EFFERV TAB PO ONE (09:00)
[2021-10-06] MEDS ORDERED: POTASSIUM CL SA 10 MEQ TAB PO ONE (09:00)
[2021-10-06] MEDS: PIPER TAZO 3.375 GM in NA CHLORIDE 0.9% 100 ML IV SCH ×2 (09:33→17:41)
[2021-10-06] MEDS: lisinopriL 10 MG TAB PO SCH (09:34)
[2021-10-06] MEDS: ENOXAPARIN 40 MG/0.4 ML SQ SCH (09:34)
[2021-10-06] MEDS ORDERED: POLYETHYL GLY 3350 17 GM/DOSE PO ONE (12:00)
--- NOTE | 2021-10-06 12:19 | P.PN ---
Subjective Date of Service: 10/06/21 Chief Complaint: Hyponatremia, aspiration pneumonia Subjective: No new changes Physical Examination - Vital Signs Temperature: 98.0 F Blood Pressure: 169/85 Pulse: 87 Respirations: 16 Pulse Ox (%): 97 - Physical Exam General: In no apparent distress HEENT: Normocephalic Neck: Supple, JVD not distended Respiratory: Other (Symmetric chest expansion) Cardiovascular: No rubs, No murmurs Gastrointestinal: Soft and benign, No rebound Musculoskeletal: No clubbing Integumentary: No warmth Neurological: Normal tone Lymphatics: No axilla or inguinal lymphadenopathy Urinary: Other (No bladder distention) External genitalia: Deferred Rectal: Deferred Assessment And Plan - Plan 1. Hyponatremia 2/2 high ADH state +/- low solute intake. Serum Na improved to 130. BNP normal. NS gtt if w/ dec po intake. Advised on adeq po solid food intake tid. 2. Hypokalemia. KCl received today. Monitor/replete prn. 3. MARIANNE, mild. SCr improved from 1.0 to 0.6 w/ IV fluid. Monitor renal panel. 4. Hypertension. BP at goal. Cont current med regimen. 5. Fall, dementia. Per primary team. 6. Ground-glass infiltration in the lung. Per primary team.
[2021-10-06] MEDS: DOCUSATE NA 100 MG CAP PO SCH ×2 (12:49→21:20)
[2021-10-06] MEDS: TAMSULOSIN 0.4 MG SR CAP PO SCH (12:49)
[2021-10-07] MEDS: PIPER TAZO 3.375 GM in NA CHLORIDE 0.9% 100 ML IV SCH ×2 (00:59→08:34)
[2021-10-07] MEDS: NA CHLORIDE 0.9% 1,000 ML IV SCH ×3 (02:53→17:14)
[2021-10-07] MEDS: ZIPRASIDONE MESYLA 20 MG/VIAL IM PRN (03:13)
[2021-10-07 06:32] LABS: Absolute Lymphocytes (CBC) 0.9 K/uL (0.7-4.9); Hematocrit 34.9 % (39.6-49.0); Lymphocytes % 14.7 % (15.3-44.8); MCV 101.9 fL (80-100); MPV 5.9 fL (7.6-11.3); RBC Red Blood Cell Count 3.42 M/uL (4.33-5.43)
[2021-10-07 06:49] LABS: Albumin 2.6 g/dL (3.4-5.0); Magnesium 2.1 mg/dL (1.8-2.4); Phosphorus 2.5 mg/dL (2.5-4.9); Potassium 3.2 mmol/L (3.5-5.1)
--- NOTE | 2021-10-07 07:14 | P.PN ---
Date of Service: 10/07/21 Subjective: s/p geodon last night, awake/alert this morning, not agitated suspect no cough, no pain, tolerating PO tachycardic yesterday afternoon, sinus tach, with PACs, while watching TV, again this morning ROS: 10 point ROS as noted above, otherwise negative Physical exam GEN: Alert, orientedx2, NAD HEENT: Normal conjunctiva, sclera anicteric CV: tachycardia, no edema Pulm: Nonlabored respirations on room air, clear to auscultation ABD: Soft, nontender, nondistended Integumentary: No rashes, no lesions Neuro: Normal speech, normal affect kong in place Problem List Hyponatremia Altered mental status/metabolic encephalopathy secondary to hyponatremia urinary retention Tachycardia Hypertension Suspected aspiration pneumonia 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; possibly in setting of pulmonary infection pt reportedly drank "a lot" of water the 1-2 days before reported sensation of needing to go urinate but only small amount coming out 1-2 days prior to admission denies fever/chills, no cough nephrology consulted, Na improving with IVF; s/p lasix a few days ago, patient with >5L UOP/day kong in place, flomax started 10/06, check PSA voiding trial 10/08 AM, check PVR dc Geodon, could be contributing to tachycardia, will repeat EKG, evaluate QTc family deny history of tachyarrhythmia Cardiology consulted continues on home lisinopril cultures negative, presumed aspiration pneumonia, mild findings on imaging. change to augmentin 10/07 Code: full Dispo: home, ~1-2 days Time Spent Managing Pts Care (In Minutes): 35
[2021-10-07] MEDS: DOCUSATE NA 100 MG CAP PO SCH ×2 (08:32→20:55)
[2021-10-07] MEDS: TAMSULOSIN 0.4 MG SR CAP PO SCH (08:32)
[2021-10-07] MEDS: lisinopriL 10 MG TAB PO SCH (08:33)
[2021-10-07] MEDS: ENOXAPARIN 40 MG/0.4 ML SQ SCH (08:33)
[2021-10-07] MEDS ORDERED: POTASSIUM CL SA 10 MEQ TAB PO ONE (09:00)
[2021-10-07] MEDS: SODIUM CHLORIDE 1 GM TAB PO SCH ×3 (09:08→20:55)
[2021-10-07 15:27] LABS: Potassium 3.8 mmol/L (3.5-5.1)
--- NOTE | 2021-10-07 17:35 | EKG ---
Test Date: 2021-10-04 Test Time: 23:29:40 Analytics Developer: MEASUREMENT RESULTS: Intervals: Rate: 82 VT: 172 QRSD: 138 QT: 454 QTc: 530 [place]: P: 66 VT: 172 QRS: 69 T: 66 INTERPRETIVE STATEMENTS: Sinus rhythm with premature atrial complexes Right bundle branch block Abnormal ECG No previous ECG available for comparison Electronically Signed On 10-07-21 17:31:05 CDT by Jm Aguilar
--- NOTE | 2021-10-07 20:22 | CON ---
Date of Consultation: 10/07/2021 Reason For Consultation: Regular heart rhythm. History Of Present Illness: This is an 86-year-old with past medical history of hypertension, sarai ia, presented to the emergency room after a fall and altered mental status. Per family, he has been confused over the course of last month and had a mechanical fall, was found in the bathroom floor and was there for about 30 minutes. Not sure if he had any loss of consciousness. Denies having any ch est pain. No palpitations. No dizziness. Past Medical History: As outlined above in the HPI. Medications: Refer reconciliation sheet for detailed list. Allergies: NO KNOWN DRUG ALLERGIES. Family History: No premature coronary artery disease or cancer. Social History: Does not smoke or drink. Does not use any drugs. Review of Systems: All system reviewed and they were negative except for what is mentioned in the HPI. Physical Examination: Vital Signs: Were reviewed. Head and Neck: Pupils are equal, reactive to light. Intact eye movements. No JVD. No cervical lym phadenopathy. Neck is supple. Thyroid is not enlarged. Lungs: Rhonchi bilaterally. No accessory muscle use or muscle retraction. Heart: Regular with no extra sounds. Abdomen: Soft, nontender. Bowel sounds positive. No organomegaly. No masses or hernia. No rigidi ty or rebound. Extremities: No clubbing, cyanosis. Intact pulses. Skin: No rash. Neurologic: Alert, awake, and oriented x3. No acute focal deficit is appreciated. Lymph Nodes: No cervical or axillary lymphadenopathy. Laboratory Investigations: Sodium, on arrival was 117, now is 129; hemoglobin 12.3; white blood coun t 6.3. Assessment And Recommendation: 1.Irregular heart rhythm. He has been having frequent premature atrial contractions, but to be bj nantly in sinus rhythm. At this point, I recommend start him on low dose of beta marbella and metopro lol 25 mg twice a day and we will keep monitoring the patient on telemetry. TSH was checked and was normal. 2.Severe hyponatremia, which is the reason for his fall was severely dehydrated. Doing better now w ith IV fluids management. His sodium is almost normal. 3.Dehydration. This is corrected with IV fluids. Thank you for the consult. /RAMY Voice ID: [id number] Report ID: [id number]
[2021-10-07] MEDS: AMOX/K CLAV 875 MG TAB PO SCH (20:55)
--- NOTE | 2021-10-07 22:37 | PN ---
Date of Progress Note: 10/07/2021 Chief Complaint: Hyponatremia, aspiration pneumonia. Subjective: The patient remains lethargic, although he is following commands and p.o. intake. He is somewhat improving. Physical Examination: Vital Signs: Blood pressure is 160/80, heart rate 87, respiratory rate 16, and pulse oximetry 98%. General: Not in acute distress. Neck: Supple. No JVD. No bruits. Lungs: Diminished breath sounds. Heart: S1, S2. Abdomen: Soft, benign. Extremities: Minimal edema. Impression/plan: 1.Hyponatremia secondary to low solute intake complicated by congestive heart failure. The patient has been treated with normal saline infusion. Plan is to sodium chloride tablets and monitor electro lytes. 2.Hypokalemia, resolved. The patient received potassium chloride for treatment of hypokalemia. 3.Acute kidney injury. Serum creatinine has improved with IV fluids. Continue to monitor and adjus t normal saline as needed. 4.Hypertension. Blood pressure is fluctuating. Monitor blood pressure, adjust medications. 5.Status post fall. Dementia per primary team. Monitor CK level. 6.Infiltration in the lungs. Per primary team, likely pneumonia. The patient will continue antibio tics. EB/MODL Voice ID: [id number] Report ID: [id number]
[2021-10-08 06:22] LABS: Albumin 2.6 g/dL (3.4-5.0); Magnesium 2.1 mg/dL (1.8-2.4); Phosphorus 2.5 mg/dL (2.5-4.9); Potassium 3.7 mmol/L (3.5-5.1)
[2021-10-08] MEDS: NA CHLORIDE 0.9% 1,000 ML IV SCH (06:31)
--- NOTE | 2021-10-08 06:55 | P.PN ---
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 kong removed 10/08, voiding, PVR <40ml denies fever/chills, no cough nephrology consulted, Na improving with IVF; s/p lasix a few days ago, patient with >5L UOP/day voiding trial 10/08 AM, check PVR dc Geodon, could be contributing to tachycardia, will repeat EKG, QTc ok; family deny history of tachyarrhythmia Cardiology consulted continue on home lisinopril cultures negative, presumed aspiration pneumonia, mild findings on imaging. changed to augmentin 10/07 working with PT - ambulated with walker - ~baseline at home Code: full Dispo: home, ~1-2 days pending sodium levels / stability Time Spent Managing Pts Care (In Minutes): 35
[2021-10-08] MEDS: AMOX/K CLAV 875 MG TAB PO SCH ×2 (08:42→21:48)
[2021-10-08] MEDS: TAMSULOSIN 0.4 MG SR CAP PO SCH (08:43)
[2021-10-08] MEDS: DOCUSATE NA 100 MG CAP PO SCH ×2 (08:43→21:48)
[2021-10-08] MEDS: ENOXAPARIN 40 MG/0.4 ML SQ SCH (08:43)
[2021-10-08] MEDS: METOPROLOL TAR 25 MG TAB PO SCH ×2 (08:43→17:40)
[2021-10-08] MEDS: lisinopriL 10 MG TAB PO SCH (08:43)
[2021-10-08] MEDS: SODIUM CHLORIDE 1 GM TAB PO SCH ×3 (08:47→21:48)
[2021-10-08] MEDS ORDERED: POTASSIUM CL SA 10 MEQ TAB PO ONE (09:00)
[2021-10-08] MEDS: FUROSEMIDE 20 MG TABLET PO SCH (17:40)
--- NOTE | 2021-10-08 21:18 | PN ---
Date of Progress Note: 10/08/2021 Subjective: Seen by bedside. He is clinically stable. No dizziness or syncope or any dysrhythmia. Review of Systems: No chest pain, shortness of breath, orthopnea, cough. No nausea, vomiting, diarrhea. All other syst ems reviewed are negative. Physical Examination: Vital Signs: Reviewed. Head and Neck: Pupils are equal, reactive to light. Intact eye movements. No JVD. No cervical lym phadenopathy. Neck is supple. Thyroid is not enlarged. Lungs: Clear to auscultation bilaterally. No rhonchi, wheezing, or crackles. No accessory muscle u se. Heart: Irregular. No extra sounds. Abdomen: Soft, nontender. Bowel sounds positive. No organomegaly. No masses or hernia. No rigidi ty or rebound. Extremities: No clubbing or cyanosis. Intact pulses. Skin: No rash. Neurologic: Alert, awake, oriented x3. No acute focal deficits appreciated. Investigations: Labs are reviewed. Assessment And Recommendations: Cardiac arrhythmia. I reviewed all telemetry since the patient was hospitalized and there was no evidence of any arrhythmia. He has frequent premature atrial contracti ons. I recommend titrating metoprolol as blood pressure allows and the patient can be followed as an outpatient. Thank you for the consultation. /RAMY Voice ID: [id number] Report ID: [id number]
--- NOTE | 2021-10-09 02:19 | PN ---
Date of Progress Note: 10/08/2021 Chief Complaint: Hyponatremia, aspiration pneumonia. Subjective: The patient remains awake, follows commands. He has hearing impairment. He denies comp laints. Objective: Lungs: Clear respirations bilaterally. Heart: S1, S2. Abdomen: Soft. Extremities: Slight edema. Impression And Plan: 1.Hyponatremia secondary to low solute intake complicated by congestive heart failure and pneumonia. We will continue p.o. fluid restriction. IV normal saline was stopped at this time. Th e patient will continue sodium chloride tablet and Lasix. Reevaluate lab work and adjust treatment a ccordingly. 2.Hypokalemia, resolved. Continue to monitor and monitor magnesium level. 3.Acute kidney injury secondary to cardiorenal syndrome. Serum creatinine has improved in response to IV fluids. Currently, IV fluids are on hold. 4.Hypertension. Blood pressure overall has improved. Continue current treatment. 5.Infiltration in the lung, likely pneumonia. The patient will continue antibiotics. EB/MODL Voice ID: [id number] Report ID: [id number]
[2021-10-09] MEDS: METOPROLOL TAR 25 MG TAB PO SCH ×2 (05:11→17:05)
[2021-10-09 06:04] LABS: Phosphorus 2.5 mg/dL (2.5-4.9); Potassium 3.6 mmol/L (3.5-5.1)
--- NOTE | 2021-10-09 06:55 | P.PN ---
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 kong removed 10/08, voiding, PVR <40ml Na improved with IVF and lasix initially, with >5L UOP/day denies fever/chills, no cough nephrology consulted karen Rucker, could be contributing to tachycardia, will repeat EKG, QTc ok; family deny history of tachyarrhythmia Cardiology consulted, started beta marbella continue on home lisinopril cultures negative, presumed aspiration pneumonia, mild findings on imaging. changed to augmentin 10/07 working with PT - ambulated with walker - ~baseline at home Code: full Dispo: home, ~1-2 days pending sodium levels / stability Time Spent Managing Pts Care (In Minutes): 35
[2021-10-09] MEDS: lisinopriL 10 MG TAB PO SCH (07:38)
[2021-10-09] MEDS: ENOXAPARIN 40 MG/0.4 ML SQ SCH (07:38)
[2021-10-09] MEDS: TAMSULOSIN 0.4 MG SR CAP PO SCH (07:40)
[2021-10-09] MEDS: FUROSEMIDE 20 MG TABLET PO SCH ×5 (07:40→22:13)
[2021-10-09] MEDS: DOCUSATE NA 100 MG CAP PO SCH ×2 (07:41→22:12)
[2021-10-09] MEDS: AMOX/K CLAV 875 MG TAB PO SCH ×2 (07:41→22:12)
[2021-10-09] MEDS: SODIUM CHLORIDE 1 GM TAB PO SCH ×3 (08:06→22:13)
[2021-10-09] MEDS ORDERED: POTASSIUM CL SA 10 MEQ TAB PO ONE (09:00)
[2021-10-09 18:39] LABS: Potassium 4.2 mmol/L (3.5-5.1)
--- NOTE | 2021-10-09 20:10 | PN ---
Date of Progress Note: 10/09/2021 Subjective: Seen by bedside. No new complaints. configuration management specialist was reviewed and there is no new arrhythmia. Review of Systems: No chest pain, shortness of breath, orthopnea, cough. No nausea, vomiting, diarrhea. No abdominal p ain. No dysuria, polyuria, or urinary urgency. All other systems reviewed and are negative. Physical Examination: Vital Signs: Reviewed. Head and Neck: Pupils are equal, reactive to light. Intact eye movements. No JVD. No cervical lym phadenopathy. Neck is supple. Thyroid is not enlarged. Lungs: Clear to auscultation bilaterally. No rhonchi, wheezing, or crackles. No accessory muscle u se. Heart: Regular rate and rhythm. No extra sounds. Abdomen: Soft, nontender. Bowel sounds positive. No organomegaly. No masses or hernia. No rigidi ty or rebound. Extremities: No clubbing or cyanosis. Intact pulses. Skin: No rash. Neurologic: Alert, awake. No acute focal deficits appreciated. Investigations: Labs were reviewed. Assessment And Recommendations: Cardiac arrhythmia. He was monitored carefully for the past 48 hour s and I do not see any arrhythmia. He is having some frequent PACs. As such, metoprolol is the only medicine recommended at this point, continue current dose at 25 mg twice a day and Cardiology will sign off. We will follow the patient on an outpatient basis. /RAMY Voice ID: [id number] Report ID: [id number]
[2021-10-09 23:09] VITALS: O2SAT 95
--- NOTE | 2021-10-10 02:02 | PN ---
Date of Progress Note: 10/09/2021 Chief Complaint: Hyponatremia, acute kidney injury, aspiration pneumonia. Subjective: The patient remains somewhat confused, although he follows commands and answers to simpl e questions. Review of Systems: Denies pain, nausea, or vomiting. Objective: Lungs: Few rhonchi. Heart: S1, S2. Abdomen: Soft. Extremities: Minimal ankle edema. Impression And Plan: 1.Hyponatremia, secondary to low solute intake, complicated by congestive heart failure and aspirati on pneumonia. Plan is to continue p.o. fluid restriction. IV normal saline was stopped at this time . The patient will continue sodium chloride tablet and Lasix. Re-evaluate lab work and adjust treat ment accordingly. 2.Hypokalemia, resolved. Monitor magnesium and phosphorus level and plan treatment for hypomagnesem ia as needed. 3.Acute kidney injury, secondary to cardiorenal syndrome. Serum creatinine has improved and the pat ient completed IV fluids. Continue Lasix for congestive heart failure and treatment of hyponatremia secondary to SIADH. This is not a culprit. 4.Hypertension. Blood pressure overall has improved. Continue treatment as well as HCTZ. 5.Infiltration in the lung, likely pneumonia. Continue antibiotics. EB/MODL Voice ID: [id number] Report ID: [id number]
[2021-10-10] MEDS: METOPROLOL TAR 25 MG TAB PO SCH (05:47)
[2021-10-10 06:31] LABS: Albumin 2.7 g/dL (3.4-5.0); Phosphorus 3.5 mg/dL (2.5-4.9); Potassium 3.9 mmol/L (3.5-5.1)
[2021-10-10] MEDS ORDERED: POTASSIUM CL SA 10 MEQ TAB PO ONE (09:00)
--- NOTE | 2021-10-10 09:09 | P.DS ---
Admission Date: 10/05/21 Discharge Date: 10/10/21 Disposition: DC HOME/HOME HEALTH CARE Discharge Condition: FAIR Reason for Admission: Hyponatremia, aspiration pneumonia Brief History of Present Illness: 86-year-old male with history of hypertension presented to the emergency department for fall, increased confusion. Patient has a history of dementia. The family reports has been increasingly confused over the past 1 month, signifi cantly worse on the day of admission. He had a fall and was found in the bathroom on the floor had been there for less than 30 minutes. He was evaluated here in the emergency department CT head neck/chest abdomen pelvis revealed suspected left-sided aspiration pneumonia. His labs were significant for hyponatremia, low chloride level. Patient was given 500 cc NS bolus in the ER as well as maintenance fluids at 75 an hour. Patient also given Zosyn for possible aspiration pneumonia. Patient admitted for further management. 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 kong removed 10/08, and patient was able to void without difficulty afterwards. Na improved with IVF and lasix. Seen by nephrology and started on sodium tablets. Patient developed tachyarrhythmia Cardiology consulted, and he was started beta marbella continued on home dose lisinopril cultures negative, presumed aspiration pneumonia. He was not IV Zosyn which was changed to augmentin 10/07 Patient ambulated with a walker which is his baseline at home. Patient clinical condition is improved. He is eating well, vitals are stable. He is deemed stable for discharge. Vital Signs/Physical Exam: Temp Pulse Resp BP Pulse Ox 98.3 F 120 H 17 125/66 95 10/10/21 04:00 10/10/21 05:47 10/10/21 04:00 10/10/21 05:47 10/10/21 04:00 General: Alert, In no apparent distress HEENT: Mucous membr. moist/pink Neck: Supple, JVD not distended Respiratory: Clear to auscultation bilaterally, Normal air movement Cardiovascular: No edema, Regular rate/rhythm, Normal S1 S2 Gastrointestinal: Soft and benign, Non-distended, No tenderness Musculoskeletal: No swelling Integumentary: No rashes Neurological: Normal strength at 5/5 x4 extr Laboratory Data at Discharge: WBC 6.3 K/uL (4.3-10.9) 10/07/21 05:35 Hgb 12.3 g/dL (13.6-17.9) L 10/07/21 05:35 Hct 34.9 % (39.6-49.0) L 10/07/21 05:35 Plt Count 289 K/uL (152-406) 10/07/21 05:35 PT 11.2 SECONDS (9.5-12.5) 10/04/21 23:27 INR 1.02 10/04/21 23:27 Sodium 133 mmol/L (136-145) L 10/10/21 05:20 Potassium 3.9 mmol/L (3.5-5.1) 10/10/21 05:20 BUN 22 mg/dL (7-18) H 10/10/21 05:20 Creatinine 0.68 mg/dL (0.55-1.3) 10/10/21 05:20 Glucose 217 mg/dL (74-106) H 10/10/21 05:20 Uric Acid 1.8 mg/dL (3.5-7.2) L 10/06/21 13:55 Phosphorus 3.5 mg/dL (2.5-4.9) 10/10/21 05:20 Magnesium 2.1 mg/dL (1.8-2.4) 10/08/21 05:32 Total Bilirubin 1.1 mg/dL (0.2-1.0) H 10/04/21 23:27 AST 17 U/L (15-37) 10/04/21 23:27 ALT 21 U/L (12-78) 10/04/21 23:27 Alkaline Phosphatase 53 U/L (45-117) 10/04/21 23:27 Home Medications: Lisinopril [Zestril] 10 mg PO DAILY 10/05/21 Amox/Clavulanate [Augmentin 875-125 Tab*] 875 mg PO BID #14 tab 10/10/21 Docusate [Colace Cap*] 100 mg PO BID #60 cap 10/10/21 Furosemide [Lasix*] 20 mg PO TID #90 tab 10/10/21 Metoprolol Tartrate [Lopressor*] 25 mg PO BID 6AM 6PM #60 tab 10/10/21 Sodium Chloride Tab [Sodium Chloride*] 2 gm PO TID #180 tab 10/10/21 Tamsulosin [Flomax*] 0.4 mg PO DAILY #30 cap 10/10/21 New Medications: Amox/Clavulanate [Augmentin 875-125 Tab*] 875 mg PO BID #14 tab Docusate [Colace Cap*] 100 mg PO BID #60 cap Tamsulosin [Flomax*] 0.4 mg PO DAILY #30 cap Furosemide [Lasix*] 20 mg PO TID #90 tab Metoprolol Tartrate [Lopressor*] 25 mg PO BID 6AM 6PM #60 tab Sodium Chloride Tab [Sodium Chloride*] 2 gm PO TID #180 tab Diet: AHA Activity: Ad chani Followup: NONE,NONE [Primary Care Provider] -
[2021-10-10] MEDS: AMOX/K CLAV 875 MG TAB PO SCH (09:11)
[2021-10-10] MEDS: TAMSULOSIN 0.4 MG SR CAP PO SCH (09:12)
[2021-10-10] MEDS: DOCUSATE NA 100 MG CAP PO SCH (09:12)
[2021-10-10] MEDS: ENOXAPARIN 40 MG/0.4 ML SQ SCH (09:13)
[2021-10-10] MEDS: lisinopriL 10 MG TAB PO SCH (09:15)
[2021-10-10] MEDS: FUROSEMIDE 20 MG TABLET PO SCH (09:15)
[2021-10-10] MEDS: SODIUM CHLORIDE 1 GM TAB PO SCH (09:17)
--- NOTE | 2021-10-10 12:02 | PN ---
Date of Progress Note: 10/10/2021 Subjective: The patient doing well. The patient was admitted for hyponatremia, hypokalemia. The giuliano michele treated for that. Feeling better. Physical Examination: Vital Signs: Blood pressure 136/74, pulse of 73, afebrile. The patient had good urine output of 150 0. Chest: Clear to auscultation. Heart: S1, S2. Systolic murmur. Abdomen: Soft, nontender. Extremities: No edema. Laboratory Data: WBC 6.3, H and H of 12.3/34.9. Sodium 133, potassium 3.9, bicarb 25, BUN 22, creat inine 0.6, calcium 8, phosphorus 3.5. Current Medications: The patient on include amoxicillin, Flomax, Lovenox, Lasix 20 t.i.d., KCl. Assessment And Plan: 1.Hyponatremia secondary to inappropriate ADH and poor intake, recovered, resolved. 2.Hypokalemia secondary to poor intake, resolved. 3.Hypertension, controlled, optimal. The patient cleared from the Renal standpoint for discharge pl anning to follow up in the office in 2-3 weeks. LOS/RAMY Voice ID: [id number] Report ID: [id number]
[2021-10-10 12:10] VITALS: BP 121/66; TEMP 98
--- NOTE | 2021-10-10 16:05 | EKG ---
Test Date: 2021-10-07 Test Time: 14:55:34 Programming Specialist: OMAIRA MEASUREMENT RESULTS: Intervals: Rate: 108 TN: 170 QRSD: 132 QT: 352 QTc: 471 [place]: P: 38 TN: 170 QRS: 41 T: 11 INTERPRETIVE STATEMENTS: Sinus tachycardia with premature atrial complexes Right bundle branch block Abnormal ECG Compared to ECG 10/06/2021 17:16:41 Atrial premature complex(es) now present T-wave abnormality no longer present Possible ischemia no longer present Electronically Signed On 10-10-21 16:04:38 CDT by Chidi Blank
--- NOTE | 2021-10-10 16:06 | EKG ---
Test Date: 2021-10-06 Test Time: 17:16:41 Bench Repair Technician: EC MEASUREMENT RESULTS: Intervals: Rate: 133 VA: 156 QRSD: 138 QT: 314 QTc: 467 [place]: P: 52 VA: 156 QRS: 56 T: 30 INTERPRETIVE STATEMENTS: Sinus tachycardia Right bundle branch block T wave abnormality, consider inferior ischemia Abnormal ECG Compared to ECG 10/04/2021 23:29:40 T-wave abnormality now present Possible ischemia now present Sinus rhythm no longer present Atrial premature complex(es) no longer present Electronically Signed On 10-10-21 16:05:16 CDT by Chidi Blank
--- NOTE | 2021-10-11 12:56 | EKG ---
Test Date: 2021-10-07 Test Time: 14:55:59 Computational Biologist: OMAIRA MEASUREMENT RESULTS: Intervals: Rate: 91 [place]: 152 QRSD: 136 QT: 364 QTc: 447 [place]: P: 49 [place]: 152 QRS: 49 T: 27 INTERPRETIVE STATEMENTS: Sinus rhythm with premature atrial complexes Right bundle branch block Abnormal ECG Compared to ECG 10/07/2021 14:55:34 Sinus tachycardia no longer present Electronically Signed On 10-11-21 12:55:15 CDT by Chidi Blank
== END 2021-10-10 12:42 | disposition home health service (06) | DRG 177 ==
LOC: ER 21:41 → ERHOLD 10-05 00:30 → 2ND 10-05 02:25
PROVIDERS: ADMIT Hospitalist; ATTEND Hospitalist
DX: J69.0 Pneumonitis due to inhalation of food and vomit (principal); G93.41 Metabolic encephalopathy; E22.2 Syndrome of inappropriate secretion of antidiuretic hormone; N17.9 Acute kidney failure, unspecified; R33.9 Retention of urine, unspecified; R00.0 Tachycardia, unspecified; F03.90 Unspecified dementia, unspecified severity, without behavioral disturbance, psychotic disturbance, mood disturbance, and anxiety; E87.6 Hypokalemia; I49.1 Atrial premature depolarization; I10 Essential (primary) hypertension; E83.42 Hypomagnesemia; N13.9 Obstructive and reflux uropathy, unspecified; E86.0 Dehydration; W01.0XXA Fall on same level from slipping, tripping and stumbling without subsequent striking against object, initial encounter; Y92.002 Bathroom of unspecified non-institutional (private) residence as the place of occurrence of the external cause; Z20.822 Contact with and (suspected) exposure to COVID-19
CPT/HCPCS: 36415; 51702; 70450; 71045; 71250; 72125; 80048; 80069; 80076; 81003; 81015; 82533; 82550; 82553; 82570; 83036; 83605; 83735; 83880; 83930; 83935; 84132; 84145; 84156; 84300; 84439; 84443; 84484; 84550; 85025; 85610; 87040; 87086; 87088; 92610; 93005; 93306; 94010; 96365; 96375; 97116; 97161; 97530; 99285; G0103; J1650; J1940; J2405; J2543; J3475; J3480; J3486; J7030; J7040; U0003